=== PATIENT | female | born 1975 | race Caucasian/White ===

== ENCOUNTER 2019-11-14 09:31 | Emergency (ER) | payer OTHER ==
[~2019-11-14] VITALS: Ht 172.7 cm; Wt 72.6 kg
[2019-11-14 09:39] VITALS: BP 142/85
[2019-11-14] MEDS ORDERED: KETOROLAC TROMETHAMINE INJ 30 MG/ML VIAL ONE (10:10)
[2019-11-14] MEDS ORDERED: KETOROLAC TROMETHAMINE INJ 60 MG/2 ML VIAL IM ONE (10:30)
[2019-11-14] MEDS ORDERED: CARISOPRODOL 350 MG TABLET ONE (11:00)
[2019-11-14] MEDS ORDERED: CARISOPRODOL 350 MG TABLET PO ONE (11:00)
--- NOTE | 2019-11-14 11:11 | NUR ---
Patient discharged to home in stable condition. Written and verbal after care instructions given. Patient verbalizes understanding of instruction.
== END 2019-11-14 11:11 | disposition home or self-care (01) ==
LOC: ER 09:35
DX: M25.819 Other specified joint disorders, unspecified shoulder (principal); M54.2 Cervicalgia; F10.10 Alcohol abuse, uncomplicated; Y90.9 Presence of alcohol in blood, level not specified
CPT/HCPCS: 71045; 73030; 93005; 96372; 99283; J1885